=== PATIENT | female | born 1965 | race African-American/Black ===

== ENCOUNTER 2021-08-11 11:25 | Emergency (ER) | payer BC, OTHER ==
[2021-08-11 12:00] VITALS: TEMP 98; BMI 26.6
[2021-08-11 13:43] LABS: CALCIUM 8.5 mg/dl (8.5-10)
[2021-08-11 13:49] LABS: ALBUMIN 2.8 g/dl (3.4-5.0); CREATININE 1.4 mg/dl (0.55-1.3); MAGNESIUM 1.2 mg/dL (1.8-2.4); PHOSPHOROUS 2.7 mg/dl (2.5-4.9); TOT PROT 7.3 g/dl (6.4-8.2)
[2021-08-11] MEDS ORDERED: SODIUM CHLORIDE 0.9% 500 ML INFUS.BAG IV ONE ×2 (14:02→14:15)
[2021-08-11 14:03] LABS: CREATININE, URINE RANDOM 260.4 mg/dL
[2021-08-11] MEDS ORDERED: MAGNESIUM SULF 50% (8.12 MEQ/2 ML-1 GM VIAL) IVPB ONE (14:03)
[2021-08-11 14:08] LABS: EPITHELIAL CELLS FEW /hpf
[2021-08-11] MEDS ORDERED: KCL 10 MEQ IVPB 10 MEQ/100 ML INFUS.BAG IVPB ONE (14:09)
[2021-08-11] MEDS ORDERED: MAGNESIUM 1GM/D5W - 1 GM/100 ML IVPB IVPB ONE (14:09)
[2021-08-11] MEDS ORDERED: KCL 10 MEQ IVPB 10 MEQ/100 ML INFUS.BAG IVPB SCH (14:15)
[2021-08-11 15:08] LABS: HEMATOCRIT 28.2 % (32.4-45.2); HEMOGLOBIN 9.3 GM/dL (10.7-15.3); MCH 26.4 pg (25.7-33.7); MCHC 33.1 g/dl (32.0-36.0); MEAN CELL VOLUME 79.8 fl (80-96); MEAN PLT VOLUME 10.8 fl (7.5-11.1); PLATELET COUNT 127 10^3/uL (134-434); RBC 3.53 M/mm3 (3.60-5.2); RDW 19.3 % (11.6-15.6); WHITE BLOOD COUNT 16.9 K/mm3 (4.0-10.0)
[2021-08-11] MEDS ORDERED: metroNIDAZOLE 500 MG TABLET PO ONE (15:56)
[2021-08-11] MEDS ORDERED: CIPROFLOXACIN 500 MG TABLET (RESTRICTED TO ID) PO ONE (15:56)
[2021-08-11 16:04] LABS: ANISOCYTOSIS 1+; MACROCYTOSIS 1+; PLATELET ESTIMATE DECREASED
[2021-08-11] MEDS ORDERED: CIPROFLOXACIN 250 MG TABLET (RESTRICTED TO ID) PO ONE (16:21)
[2021-08-11] MEDS ORDERED: metroNIDAZOLE 250 MG TABLET ONE (16:21)
[2021-08-11] MEDS ORDERED: POTASSIUM CHLORIDE ORAL LIQUID 20 MEQ/15 ML PO ONE (16:28)
[2021-08-11] MEDS ORDERED: POTASSIUM CHLORIDE ORAL LIQUID 20 MEQ/15 ML ONE (16:29)
[2021-08-11 16:49] VITALS: BP 120/80; PULSE 72
== END 2021-08-11 16:58 | disposition home or self-care (01) ==
LOC: FER 11:25
PROC: 3E033GC Introduction of Other Therapeutic Substance into Peripheral Vein, Percutaneous Approach (ICD-10-PCS; principal; 2021-08-11)
PROC: 3E033GC Introduction of Other Therapeutic Substance into Peripheral Vein, Percutaneous Approach (ICD-10-PCS; 2021-08-11)
DX: E86.0 Dehydration (principal); E87.6 Hypokalemia; E83.42 Hypomagnesemia
CPT/HCPCS: 36415; 74177-TC; 76705-TC; 80053; 81003; 81015; 82550; 82570; 83605; 83690; 83735; 84100; 84156; 84300; 84443; 84484; 85025; 85730; 87040; 87086; 93005; 99285-25; C9803-CS; U0003; U0005